=== PATIENT | male | born 1960 | race African-American/Black ===

== ENCOUNTER 2016-07-30 12:00 | Emergency (ER) | payer SELFPAY ==
[~2016-07-30] VITALS: Ht 180.3 cm; Wt 68.0 kg
[2016-07-30] MEDS ORDERED: Bactrim DS (160mg/800mg) tab ORAL ONE (12:15)
[2016-07-30] MEDS ORDERED: Cephalexin 500mg cap ORAL ONE (12:15)
[2016-07-30] MEDS ORDERED: CEPHALEXIN500 MG ORAL (12:36)
[2016-07-30] MEDS ORDERED: BACTRIM DS TAB1 EAC1 ORAL (12:36)
[2016-07-30] MEDS ORDERED: IBUPROFEN600 MG ORAL (12:36)
[2016-07-30 13:01] VITALS: BP 141/67
[2016-07-30 13:02] VITALS: BP 146/65
--- NOTE | 2016-07-30 21:25 | Emergency Room Report ---
History of Present Illness General Chief Complaint: Medical Clearance Source: Patient Present Illness HPI The patient is a 56-year-old male brought in by ambulance in custody complaining of left leg pain. The patient states that pain did not begin today. He noticed an insect bite 5 days prior which has grown in size and redness. Pain is described as a 10 out of 10 dull ache and does not radiate from the left lower leg. He denies any other symptoms including fever, chills, numbness or tingling, N, V, abd pain, CP, SOB Allergies: Coded Allergies: No Known Allergies (Unverified , 07/30/16) Patient History Past Medical History: see triage record Pertinent Family History: none Reviewed Nursing Documentation: PMH: Agreed, PSxH: Agreed Nursing Documentation-PMH Past Medical History: No History, Except For Hx Asthma: Yes Review of Systems All Other Systems: negative except mentioned in HPI Physical Exam Vital Signs Date Time Temp Pulse Resp B/P Pulse Ox O2 Delivery O2 Flow Rate FiO2 07/30/16 11:54 98.6 75 20 146/65 98 Room Air Sp02 EP Interpretation: reviewed, normal General Appearance: no apparent distress, alert, GCS 15, non-toxic Head: normocephalic, atraumatic Eyes: bilateral eye PERRL, bilateral eye normal inspection ENT: hearing grossly normal, normal pharynx, no angioedema, normal voice Musculoskeletal: normal range of motion, tender - TTP over the infected region of L lower medial leg Neurologic: alert, oriented x3, responsive, motor strength/tone normal, sensory intact, normal gait, speech normal Psychiatric: judgement/insight normal, memory normal, mood/affect normal, no suicidal/homicidal ideation Skin: other - erythema of the L medial lower leg. TTP. Hot to the touch. No fluctuance. There is a central necrosis noted. Lymphatic: no adenopathy Medical Decision Making PA Attestation Dr. Decker is my supervising physician. Patient management was discussed with my supervising physician Diagnostic Impression: Primary Impression: Cellulitis Qualified Codes: L03.116 - Cellulitis of left lower limb ER Course The patient is a 56-year-old male brought in by ambulance in custody complaining of left leg pain. Ddx considered include but not limited to cellulitis, abscess, DVT, sprain/ strain, among others PE: vitals WNL. NAD erythema of the L medial lower leg. TTP. Hot to the touch. No fluctuance. There is a central necrosis noted. No discharge. No mid calf tenderness or palpable cord. Normal gait. The area is cleaned with NS and betadine and sterile dressing applied with xeroform. The pt is given pain medication and antibiotics and will be ID'ed in custody. Pt is medically cleared. Last Vital Signs Date Time Temp Pulse Resp B/P Pulse Ox O2 Delivery O2 Flow Rate FiO2 07/30/16 13:02 98.6 20 146/65 98 Room Air 07/30/16 13:01 79 Status: improved Disposition: HOME, SELF-CARE Condition: Improved Scripts Trimethoprim/Sulfamethoxazole 160/800* (BACTRIM DS TABLET*) 1 Each Tablet 1 TAB ORAL TWICE A DAY, #14 TAB Prov: KORIN RESTREPO.A. 07/30/16 Cephalexin* (KEFLEX*) 500 Mg Capsule 500 MG ORAL EVERY 6 HOURS, #28 CAP Prov: KORIN RESTREPO P.A. 07/30/16 Ibuprofen* (MOTRIN*) 600 Mg Tablet 600 MG ORAL Q8H Y for For Pain, #30 TAB 0 Refills Prov: KORIN RESTREPO P.A. 07/30/16 Referrals: NOT CHOSEN IPA/MD,REFERRING (PCP) Departure Forms: Half-Way Clearance Patient Instructions: Cellulitis Additional Instructions: I discussed my findings with the patient. All questions and concerns have been answered. Treatment and medication compliance have been addressed. Seek medical attention immediately if you notice increased pain, swelling, fever, chills, or for any other reason. Patient verbalized understanding of discharge instructions. KORIN RESTREPO July 30, 2016 21:25
== END 2016-07-30 13:04 ==
LOC: EDBD 12:00 → EMR 12:45
DX: L03.116 Cellulitis of left lower limb (principal); M79.605 Pain in left leg; J45.909 Unspecified asthma, uncomplicated; Z02.89 Encounter for other administrative examinations
CPT/HCPCS: 99284

== ENCOUNTER 2018-03-15 13:23 | Inpatient (IN) | payer SELFPAY ==
[~2018-03-15] VITALS: Ht 175.3 cm; Wt 68.0 kg
[~2018-03-15 13:23] MED LIST: BACTRIM DS TAB1 EAC1 ORAL; CEPHALEXIN500 MG ORAL; IBUPROFEN600 MG ORAL
[2018-03-15 13:30] VITALS: BP 164/83
--- NOTE | 2018-03-15 13:30 | NUR ---
ED Nurse Note: noted swelling on left side facial area and right hand swelling, PA aware.
--- NOTE | 2018-03-15 13:30 | NUR ---
ED Nurse Note: PT WALKED IN TO ER TODAY FROM HOME. AOX4. PT C/O RIGHT HAND PAIN, 10/10 X YESTERDAY AFTER SUSPECTED INSECT BITE. HAND APPEARS SWOLLEN BUT FULL ROM OF DIGITS AND WRIST, CIRCULATION AND SENSATION INTACT, CAP REFILL <3 SECONDS, MUSCLE STRENGTH 5/5.
--- NOTE | 2018-03-15 13:35 | NUR ---
ED Nurse Note: PT PRESENTS WITH BILATERAL 2+ PITTING LEG EDEMA.
[2018-03-15] MEDS ORDERED: Ampicillin/Sulbactam Sod 3 GM in NS 110 ML IVPB ONE (14:15)
[2018-03-15 14:59] LABS: BASOPHILS % (AUTO) 1.1 % (0.0-2.0); EOSINOPHILS % (AUTO) 1.8 % (0.0-3.0); HEMATOCRIT 40.5 % (42.0-52.0); HEMOGLOBIN 13.6 G/DL (14.2-18.0); LYMPHOCYTES % (AUTO) 21.9 % (20.0-45.0); MEAN CORPUSCULAR VOLUME 94 FL (80-99); MONOCYTES % (AUTO) 15.3 % (1.0-10.0); PLATELET COUNT 299 K/UL (150-450); RED BLOOD COUNT 4.33 M/UL (4.70-6.10); RED CELL DISTRIBUTION WIDTH 11.3 % (11.6-14.8); WHITE BLOOD COUNT 6.7 K/UL (4.8-10.8)
[2018-03-15 15:03] LABS: ANION GAP 7 mmol/L (5-15); BLOOD UREA NITROGEN 15 mg/dL (7-18); CALCIUM 9.2 MG/DL (8.5-10.1); CARBON DIOXIDE 29 MMOL/L (21-32); CHLORIDE 104 MMOL/L (98-107); CREATININE 1.1 MG/DL (0.55-1.30); POTASSIUM 4.1 MMOL/L (3.5-5.1); SODIUM 140 MMOL/L (136-145)
[2018-03-15 15:09] LABS: ALANINE AMINOTRANSFERASE 25 U/L (12-78); ALBUMIN 3.3 G/DL (3.4-5.0); ALBUMIN/GLOBULIN RATIO 0.9 (1.0-2.7); ALKALINE PHOSPHATASE 100 U/L (46-116); ASPARTATE AMINO TRANSFERASE 20 U/L (15-37); BILIRUBIN,TOTAL 0.4 MG/DL (0.2-1.0); CREATINE KINASE 239 U/L (26-308)
[2018-03-15] MEDS ORDERED: Tylenol #3 tab (300mg/30mg) ORAL ONE (15:15)
--- NOTE | 2018-03-15 15:15 | Emergency Room Report ---
History of Present Illness General Chief Complaint: Animal Bite Source: Patient Present Illness HPI 57-year-old male presents to the emergency department complaining of pain, swelling, warmth and erythema to the right and left hand since yesterday. Patient reports that his most significant pain is in the right middle finger however he also has pain in the left index finger as well. Patient believes he was bit by a spider. Patient denies fevers or chills. He denies past medical history. Patient denies taking medications at this time. He denies Trauma or fall. pt. reports inability to make a fist with his right hand, and he cannot straighten his left index finger. Reports tetanus is UTD. Allergies: Coded Allergies: No Known Allergies (Unverified , 07/30/16) Patient History Past Medical History: see triage record Past Surgical History: none Pertinent Family History: none Immunizations: UTD Reviewed Nursing Documentation: PMH: Agreed; PSxH: Agreed Nursing Documentation-PMH Past Medical History: No History, Except For Hx Hypertension: Yes Hx Asthma: Yes Review of Systems All Other Systems: negative except mentioned in HPI Physical Exam Vital Signs Date Time Temp Pulse Resp B/P (MAP) Pulse Ox O2 Delivery O2 Flow Rate FiO2 03/15/18 13:27 97.9 80 20 176/89 99 Room Air Sp02 EP Interpretation: reviewed, normal General Appearance: alert, GCS 15, non-toxic, mild distress Head: normocephalic, atraumatic Eyes: bilateral eye normal inspection, bilateral eye PERRL ENT: hearing grossly normal, normal voice Neck: full range of motion Respiratory: lungs clear, normal breath sounds, speaking full sentences Cardiovascular #1: regular rate, rhythm, normal capillary refill Cardiovascular #2: 2+ radial (R), 2+ radial (L) Gastrointestinal: non tender, soft Musculoskeletal: back normal, gait/station normal, normal range of motion, non- tender, swelling - RMF and left index finger. Neurologic: alert, oriented x3, responsive, motor strength/tone normal, sensory intact, speech normal, grossly normal Psychiatric: judgement/insight normal Skin: no rash, warm/dry, well hydrated, other - erythema swelling and warmth to the entire RMF, also noted on the Left index finger as well to a lesser degree. erythema and warmth to fingers 1-5 of the right hand. no streatking noted. Medical Decision Making PA Attestation Dr. Frances is my supervising Physician whom patient management has been discussed with. Diagnostic Impression: Primary Impression: Cellulitis Qualified Codes: L03.011 - Cellulitis of right finger Additional Impression: Tenosynovitis of finger ER Course 57-year-old male presents to the emergency department complaining of pain, swelling, warmth and erythema to the right and left hand since yesterday. Patient reports that his most significant pain is in the right middle finger however he also has pain in the left index finger as well. Patient believes he was bit by a spider. Patient denies fevers or chills. He denies past medical history. Patient denies taking medications at this time. He denies Trauma or fall. pt. reports inability to make a fist with his right hand, and he cannot straighten his left index finger. Reports tetanus is UTD. Ddx considered but are not limited to cellulitis, paronychia, eponychia, ingrown nail, fracture, d/L, gout, tenosynovitis just to name a few. Vital signs: are WNL, pt. is afebrile H&PE are most consistent with significant cellulitis of the RMF, and Left index finger. ORDERS: - CBC, CMP, Lactic acid= Mild anemia otherwise all unremarkable/WNL -Blood Cultures: Pending -X-rays bilateral Hands: negative for fx's or D/L's ED INTERVENTIONS: -IV abx. - Vancomycin -4mg Morphine x 2 DISPOSITION: at this time pt. will be admitted to Dr. Rivero for Cellulitis and Tenosynovitis of the right hand. Dr. Rivero agreed to admit the pt. and to continue pt. care management. Labs Test 03/15/18 14:46 White Blood Count 6.7 K/UL (4.8-10.8) Red Blood Count 4.33 M/UL (4.70-6.10) Hemoglobin 13.6 G/DL (14.2-18.0) Hematocrit 40.5 % (42.0-52.0) Mean Corpuscular Volume 94 FL (80-99) Mean Corpuscular Hemoglobin 31.4 PG (27.0-31.0) Mean Corpuscular Hemoglobin Concent 33.5 G/DL (32.0-36.0) Red Cell Distribution Width 11.3 % (11.6-14.8) Platelet Count 299 K/UL (150-450) Mean Platelet Volume 5.6 FL (6.5-10.1) Neutrophils (%) (Auto) 60.0 % (45.0-75.0) Lymphocytes (%) (Auto) 21.9 % (20.0-45.0) Monocytes (%) (Auto) 15.3 % (1.0-10.0) Eosinophils (%) (Auto) 1.8 % (0.0-3.0) Basophils (%) (Auto) 1.1 % (0.0-2.0) Sodium Level 140 MMOL/L (136-145) Potassium Level 4.1 MMOL/L (3.5-5.1) Chloride Level 104 MMOL/L (98-107) Carbon Dioxide Level 29 MMOL/L (21-32) Anion Gap 7 mmol/L (5-15) Blood Urea Nitrogen 15 mg/dL (7-18) Creatinine 1.1 MG/DL (0.55-1.30) Estimat Glomerular Filtration Rate > 60 mL/min (>60) Glucose Level 86 MG/DL (74-106) Lactic Acid Level 0.80 mmol/L (0.4-2.0) Calcium Level 9.2 MG/DL (8.5-10.1) Total Bilirubin 0.4 MG/DL (0.2-1.0) Aspartate Amino Transf (AST/SGOT) 20 U/L (15-37) Alanine Aminotransferase (ALT/SGPT) 25 U/L (12-78) Alkaline Phosphatase 100 U/L (46-116) Total Creatine Kinase 239 U/L (26-308) Troponin I 0.000 ng/mL (0.000-0.056) Total Protein 7.1 G/DL (6.4-8.2) Albumin 3.3 G/DL (3.4-5.0) Globulin 3.8 g/dL Albumin/Globulin Ratio 0.9 (1.0-2.7) Other X-Ray Diagnostic Results Other X-Ray Diagnostic Results #1: X-Ray ordered: Right Hand # of Views/Limited Vs Complete: 3 View Indication: Pain EP Interpretation: Yes PA Xray: Interpretation reviewed, by supervising MD, and agrees with findings. Interpretation: no dislocation, no soft tissue swelling, no fractures Impression: No acute disease Electronically Signed by: Sadaf Crawford PA-C Other X-Ray Diagnostic Results #2: X-Ray ordered: Left Hand # of Views/Limited Vs Complete: 3 View Indication: Pain EP Interpretation: Yes PA Xray: Interpretation reviewed, by supervising MD, and agrees with findings. Interpretation: no dislocation, no soft tissue swelling, no fractures Impression: No acute disease Electronically Signed by: Sadaf Crawford PA-C Last Vital Signs Date Time Temp Pulse Resp B/P (MAP) Pulse Ox O2 Delivery O2 Flow Rate FiO2 03/15/18 13:30 98.2 76 18 164/83 98 Room Air Disposition: ADMITTED INPATIENT Condition: Serious Sadaf Crawford Mar 15, 2018 15:15
[2018-03-15] MEDS ORDERED: TYLENOL325 M1 PO (15:25)
[2018-03-15 15:30] VITALS: BP 167/89
[2018-03-15] MEDS ORDERED: Vancomycin 1.5gm/D5W 250ml 250 ML IVPB ONE (16:30)
--- NOTE | 2018-03-15 16:34 | NUR ---
ED Nurse Note: pt kelvino not in stock, pharmacy notified.
--- NOTE | 2018-03-15 16:55 | Diagnostic Imaging Report ---
Indication: left hand pain. Findings: 3 views of the left hand were obtained. Normal alignment is demonstrated. No acute fractures, erosions, or periosteal reaction are seen. Soft tissues are unremarkable. Impression: No acute findings.
--- NOTE | 2018-03-15 16:56 | Diagnostic Imaging Report ---
Indication: Right hand pain Findings: 3 views of the right hand were obtained. Normal bony mineralization and alignment are demonstrated. No acute fractures, erosions, or periosteal reaction are seen. Soft tissues swelling is present. Impression: No acute findings.
--- NOTE | 2018-03-15 17:24 | NUR ---
ED Nurse Note: PHARMACY DELIVERED VANCO. WILL ADMINISTER SHORTLY.
[2018-03-15 17:30] VITALS: BP 166/89
[2018-03-15] MEDS ORDERED: Morphine Sulfate 4mg/ml Inj (IV/IM USE ONLY) IVP ONE ×2 (18:00→20:15)
--- NOTE | 2018-03-15 18:12 | NUR ---
ED Nurse Note: pt refused to swab for MRSA/VRE, pt became combative and used inappropriate language, MD notified.
--- NOTE | 2018-03-15 18:13 | NUR ---
ED Nurse Note: pt provided with sandwich and juice, unable to complete belonging list, pt refused.
--- NOTE | 2018-03-15 18:30 | NUR ---
ED Nurse Note: CALLED FOR REPORT. LEFT ON HOLD FOR >5MINS.
--- NOTE | 2018-03-15 18:39 | NUR ---
ED Nurse Note: CALLED [facility] FOR PT TRANSFER. NO ANSWER.
--- NOTE | 2018-03-15 18:46 | NUR ---
ED Nurse Note: CALLED [facility] FOR PT TRANSFER. NO ANSWER.
--- NOTE | 2018-03-15 18:56 | NUR ---
NURSE NOTES: Received report from Ed from ER. Awaiting for the patient.
--- NOTE | 2018-03-15 18:56 | NUR ---
ED Nurse Note: [facility] CALLED FOR PT TRANSFER. REPORT GIVEN TO DUKE LYMAN. PT BEING HELD IN ED PER DR. FISHER UNTIL HAND SURGEON IS CONTACTED. WILL CONTINUE TO MONITOR.
--- NOTE | 2018-03-15 19:00 | NUR ---
HAND-OFF: Report given to Olivia. Still waiting for the patient.
--- NOTE | 2018-03-15 19:25 | NUR ---
ED Nurse Note: ERMD notified regarding pt's condition, PT bp = 212/98
[2018-03-15 19:30] VITALS: BP 212/78
--- NOTE | 2018-03-15 20:00 | NUR ---
ED Nurse Note: hydralazine was held, ERMD notified,regarding recheck vs after pain med administration.
--- NOTE | 2018-03-15 20:04 | NUR ---
ED Nurse Note: Pt c/o 12/15 pain, pa notified.
[2018-03-15] MEDS ORDERED: Morphine Sulfate 4mg/ml Inj (IV/IM USE ONLY) ONE (20:18)
--- NOTE | 2018-03-15 20:31 | NUR ---
ED Nurse Note: pt tranfered to monitor bed from ob bed, pt is complaining of 10/10 pain on right hand, noted to have swelling right hand, morphine given. pt vs recorded. will continue to monitor.
[2018-03-15] MEDS ORDERED: Isovue-300 100ml vial INJ PRN (21:30)
[2018-03-15] MEDS ORDERED: cloNIDine 0.2mg Tab ONE (21:55)
[2018-03-15] MEDS ORDERED: HYDROmorphone 1mg/ml Carpuject ONE (21:55)
[2018-03-15] MEDS ORDERED: HYDROmorphone 1mg/ml Carpuject IVP ONE (22:00)
[2018-03-15] MEDS ORDERED: cloNIDine 0.2mg Tab ORAL ONE (22:00)
--- NOTE | 2018-03-15 22:21 | NUR ---
ED Nurse Note: pt was admitted to the hospital. report given to erich tripp. pt tranfered with stable vital signs.
[2018-03-15 22:22] VITALS: BP 174/91
[2018-03-15 23:43] VITALS: BP 168/82
--- NOTE | 2018-03-16 00:36 | NUR ---
NURSE NOTES: Patient is alert and awake. Nurse woke him up for moving pt to hospital bed. Patient asked nurse to give him pain medication. Nurse informed pt will call the Primary to get order. Patient was yelling at nurse and toe pounder. Verbally abused and cursed. Patient refused to take VS and checking belongings. Informed CN and nursing lead refinery supervisor. Left message MD for admit order and pt's condition. Addendum: 03/16/18 at 0056 by BELEM DELEON RN Patient resting in the bed quietly now. Will continue to monitor.
--- NOTE | 2018-03-16 01:07 | NUR ---
NURSE NOTES: Refused nurse to do assessment.
--- NOTE | 2018-03-16 04:44 | NUR ---
NURSE NOTES: @0400, Patient slammed door loudly. Reported to security, CN and Funnel Coater. Patient was yelling and c/o pain. verbally abused. stated "Fxxk and leave me alone" Nurse informed pt that already contacted MD. waiting for order. Still yelling and asked nurse leave him alone. Now patient stayed bed and sleeping. Will continue to monitor. Addendum: 03/16/18 at 0452 by BELEM DELEON RN Nurse left door open.
[2018-03-16] MEDS ORDERED: Morphine Sulfate 4mg/ml Inj (IV/IM USE ONLY) IVP PRN (05:30)
--- NOTE | 2018-03-16 05:48 | NUR ---
NURSE NOTES: received admit order from
--- NOTE | 2018-03-16 07:58 | NUR ---
HAND-OFF: Report given to Deanna WALL.
[2018-03-16 08:00] VITALS: BP 176/86
--- NOTE | 2018-03-16 08:00 | NUR ---
NURSE NOTES: Received report from Marjorie WALL. On rounds, patient is asleep, no s/s acute distress noted. LAC IV asymptomatic. No IVF running, per report patient refuses IVF. NPO maintained. Per report, patient refused VS overnight. Side rails upx2, bed low and locked, call light in reach. Will continue to monitor.
--- NOTE | 2018-03-16 08:59 | Consultation ---
History of Present Illness General Date patient seen: Mar 16, 2018 Time patient seen: 07:45 - am Chief Complaint: Hand cellulitis Referring physician: Dr. Sherman Reason for Consultation: Pain Management Present Illness HPI 57-year-old male presents to the emergency department complaining of pain, swelling, warmth and erythema to the right and left hand since yesterday. Patient reports that his most significant pain is in the right middle finger however he also has pain in the left index finger as well. Patient believes he was bit by a spider. Patient denies fevers or chills. He denies past medical history. Patient denies taking medications at this time. He denies Trauma or fall. pt. reports inability to make a fist with his right hand, and he cannot straighten his left index finger. Allergies: Coded Allergies: No Known Allergies (Unverified , 07/30/16) Medication History Scheduled Cephalexin* (Keflex*), 500 MG ORAL EVERY 6 HOURS Trimethoprim/Sulfamethoxazole 160/800* (Bactrim Ds Tablet*), 1 TAB ORAL TWICE A DAY Scheduled PRN Ibuprofen* (Motrin*), 600 MG ORAL Q8H PRN for For Pain Miscellaneous Medications Acetaminophen (Tylenol), 325 MG PO, (Reported) Patient History Healthcare decision maker Resuscitation status Full Code Advanced Directive on File Patient History Narrative Hx Hypertension: Yes Hx Asthma: Yes Past Medical/Surgical History Past Medical/Surgical History: (1) Cellulitis Review of Systems Constitutional: Reports: no symptoms Eye: Reports: no symptoms ENT: Reports: no symptoms Respiratory: Reports: no symptoms Cardiovascular: Reports: no symptoms Gastrointestinal: Reports: no symptoms Genitourinary: Reports: no symptoms Musculoskeletal: Reports: other - Right hand pain Skin: Reports: no symptoms Psychiatric: Reports: no symptoms Neurological: Reports: no symptoms Endocrine: Reports: no symptoms Hematologic/Lymphatic: Reports: no symptoms Physical Exam Last 24 Hour Vital Signs Date Time Temp Pulse Resp B/P (MAP) Pulse Ox O2 Delivery O2 Flow Rate FiO2 03/16/18 01:03 Room Air 03/15/18 23:43 98.0 93 14 168/82 97 Room Air 93 93 03/15/18 23:15 178/87 03/15/18 22:22 98.0 93 18 174/91 97 Room Air 03/15/18 22:22 98.0 93 14 174/91 97 Room Air 93 1/8/19 21:56 186/90 03/15/18 20:46 193/93 03/15/18 20:02 76 18 Room Air 03/15/18 19:30 97.7 76 18 212/78 98 Room Air 03/15/18 17:30 97.8 78 18 166/89 98 Room Air 03/15/18 15:30 97.8 76 18 167/89 98 Room Air 03/15/18 13:30 98.2 76 18 164/83 98 Room Air 03/15/18 13:27 97.9 80 20 176/89 99 Room Air Intake and Output 03/15/18 03/16/18 18:59 06:59 Intake Total 110 ml Balance 110 ml Intake IV Total 110 ml # Voids 1 Laboratory Tests Test 03/15/18 14:46 White Blood Count 6.7 K/UL (4.8-10.8) Red Blood Count 4.33 M/UL (4.70-6.10) L Hemoglobin 13.6 G/DL (14.2-18.0) L Hematocrit 40.5 % (42.0-52.0) L Mean Corpuscular Volume 94 FL (80-99) Mean Corpuscular Hemoglobin 31.4 PG (27.0-31.0) H Mean Corpuscular Hemoglobin Concent 33.5 G/DL (32.0-36.0) Red Cell Distribution Width 11.3 % (11.6-14.8) L Platelet Count 299 K/UL (150-450) Mean Platelet Volume 5.6 FL (6.5-10.1) L Neutrophils (%) (Auto) 60.0 % (45.0-75.0) Lymphocytes (%) (Auto) 21.9 % (20.0-45.0) Monocytes (%) (Auto) 15.3 % (1.0-10.0) H Eosinophils (%) (Auto) 1.8 % (0.0-3.0) Basophils (%) (Auto) 1.1 % (0.0-2.0) Sodium Level 140 MMOL/L (136-145) Potassium Level 4.1 MMOL/L (3.5-5.1) Chloride Level 104 MMOL/L (98-107) Carbon Dioxide Level 29 MMOL/L (21-32) Anion Gap 7 mmol/L (5-15) Blood Urea Nitrogen 15 mg/dL (7-18) Creatinine 1.1 MG/DL (0.55-1.30) Estimat Glomerular Filtration Rate > 60 mL/min (>60) Glucose Level 86 MG/DL (74-106) Lactic Acid Level 0.80 mmol/L (0.4-2.0) Calcium Level 9.2 MG/DL (8.5-10.1) Total Bilirubin 0.4 MG/DL (0.2-1.0) Aspartate Amino Transf (AST/SGOT) 20 U/L (15-37) Alanine Aminotransferase (ALT/SGPT) 25 U/L (12-78) Alkaline Phosphatase 100 U/L (46-116) Total Creatine Kinase 239 U/L (26-308) Troponin I 0.000 ng/mL (0.000-0.056) Total Protein 7.1 G/DL (6.4-8.2) Albumin 3.3 G/DL (3.4-5.0) L Globulin 3.8 g/dL Albumin/Globulin Ratio 0.9 (1.0-2.7) L Height (Feet): 5 Height (Inches): 9.00 Weight (Pounds): 150 Medications Current Medications Medications (Trade) Dose Ordered Sig/Monica Route PRN Reason Start Time Stop Time Status Last Admin Dose Admin Acetaminophen (Tylenol) 650 mg Q4H PRN ORAL Mild Pain/Temp > 100.5 03/16/18 05:30 04/15/18 05:29 Clonidine HCl (Catapres Tab) 0.1 mg Q6H PRN ORAL For High Blood Pressure 03/16/18 05:30 04/15/18 05:29 Iopamidol (Isovue-300 100ml) 100 ml NOW PRN INJ Radiology Procedure 03/15/18 21:30 03/17/18 21:20 Morphine Sulfate (Morphine Sulfate) 4 mg Q4H PRN IVP For Pain 03/16/18 05:30 03/23/18 05:29 Sodium Chloride 1,000 ml @ 75 mls/hr [id number] IV 03/16/18 06:00 04/15/18 05:59 Objective Narrative General Appearance: alert, GCS 15, non-toxic, mild distress Head: normocephalic, atraumatic Eyes: bilateral eye normal inspection, bilateral eye PERRL ENT: hearing grossly normal, normal voice Neck: full range of motion Respiratory: lungs clear, normal breath sounds, speaking full sentences Cardiovascular #1: regular rate, rhythm, normal capillary refill Cardiovascular #2: 2+ radial (R), 2+ radial (L) Gastrointestinal: non tender, soft Musculoskeletal: back normal, gait/station normal, normal range of motion, non- tender, swelling - RMF and left index finger. Neurologic: alert, oriented x3, responsive, motor strength/tone normal, sensory intact, speech normal, grossly normal Psychiatric: judgement/insight normal Skin: no rash, warm/dry, well hydrated, other - erythema swelling and warmth to the entire RMF, also noted on the Left index finger as well to a lesser degree. erythema and warmth to fingers 1-5 of the right hand. no streaking noted. Assessment/Plan Assessment/Plan (1) Right hand pain (2) Right hand Cellulitis Patient to be continued on Morphine 4mg IV Q4H PRN severe pain. D/w Dr. Amin and he concurred. Thank you for consult. Ron Flynn Mar 16, 2018 08:59
[2018-03-16 09:13] VITALS: BP 176/86
--- NOTE | 2018-03-16 10:31 | NUR ---
NURSE NOTES: Patient reports he is going to leave AMA. Acting irate with staff, threw call light at MD when MD tried to explain why patient needs to remain NPO. Security is at the bedside. MD and RN both explained the risks of leaving AMA to the patient, but the patient states he does not want to stay and does not want to have surgery despite these risks. Addendum: 03/16/18 at 1056 by Deanna Palma RN Add: MD is aware of patient's elevated blood pressure earlier in morning, patient refused to let RN reassess. Addendum: 03/16/18 at 1108 by Deanna Palma RN Edit to previous addendum: Patient refused to let RN reassess blood pressure before leaving AMA.
--- NOTE | 2018-03-16 10:36 | NUR ---
AMA: SEE AMA FORM (PATIENT REFUSED TO SIGN, AWARE. WITNESSED BY CHARGE NURSE MARIAN WALL). Patient left AMA at 1033, escorted off unit by security, patient ambulatory, IV removed intact. Dr. Ramírez and Dr. Sherman both explained the risks of leaving the hospital AMA to the patient, including worsening of condition, loss of limb, and . The patient stated that he understands the risks but still insisted on leaving. Offered additional education on risks of leaving, patient reported "I don't care. I'm leaving". Told patient multiple times that he must sign AMA form, patient refused to sign form multiple times. Dr. Sherman is aware and refusal witnessed by recharger. Patient refused to sign for belongings. Nursing supervisor shuttle fitting aware.
--- NOTE | 2018-03-17 04:45 | History and Physical Report ---
DATE OF ADMISSION: 03/15/2018 HISTORY OF PRESENT ILLNESS: The patient initially was admitted for right finger cellulitis. ER doctor was able to talk to Dr. Fang Ramírez and he was kind enough to see the patient and do the surgery for the cellulitis of the right finger. The patient has a history of drug abuse and history of smoking. The patient also currently has a history of psychiatric disorder. The patient was very agitated, combative from the beginning of admission for different reasons. Also, I was present in the room when the surgeon, Dr. Ramírez came to do the surgery. He all of a sudden got very physically and verbally abusive, got out of the bed and stated that "I am going to leave right now." The patient refused to answer any questions and did not want to even sign the AMA paper. It is unclear why the patient wanted to be discharged against medical advice. We explained to him that he may lose his finger. He knew the consequences very well. However, he was wanting to leave. So, the surgeon obviously had to cancel the surgery. PAST MEDICAL HISTORY: The patient does not answer the questions. So, we cannot find out what his personal history is. PAST SURGICAL HISTORY: The patient does not answer the questions. So, we cannot find out what his personal history is. ALLERGIES: We do not know whether the patient has allergies or not. MEDICATIONS: We do not know whether the patient takes any medications or not. REVIEW OF SYSTEMS: Does not answer questions, was agitated, verbally abusive to staff as well as to the doctors including myself. PHYSICAL EXAMINATION: VITAL SIGNS: Temperature 97.2 degrees, pulse 70, and blood pressure 130/78. EXTREMITIES: The patient did not allow us to examine him, but did have a swollen right index finger throughout and was tender to touch when the surgeon was examining it. ASSESSMENT AND PLAN: Right finger cellulitis. The patient does not want to wait long enough to do the surgery. He wants to leave against medical advice despite us stating that he might lose his finger. We told him that he will lose his finger and we made it very clear to him and he still chose to leave. Frankie Sherman M.D. DR: Germania JOB#: [id number] CC:
--- NOTE | 2018-03-17 09:27 | Discharge Summary ---
Discharge Summary Discharge Summary _ DATE OF ADMISSION: 03/15/2018 DATE OF DISCHARGE: 03/16/2018 ADMITTING MD: Dr. Frankie Solomon CONSULTANTS: Dr. Ana Ramírez BRIEF HOSPITAL COURSE: Patient is a 57-year-old male, who presented to the emergency department complaining of pain, swelling and warmth with erythema to the right hand and left hand. Patient reported that most significant pain is in the right middle finger, however he also has pain in the left index finger. He believed he was bitten by a spider. Patient denied any fever or chills. He denied past medical history. He denied taking any medications. He denied any trauma or fall. He has history of drug abuse and history of smoking. He also has history of psychiatric disorder. He reported inability to make a fist with the right hand. He cannot straighten his left index finger. He reported that tetanus vaccine was up-to-date. On evaluation at the ED, blood pressure was elevated to 176/89. Blood work did not show any leukocytosis. Lactic acid 0.80. X-rays of bilateral hand was negative for acute fractures, erosions or periosteal reactions there was soft tissue swelling present on the right hand. CT of the hand was ordered but patient refused. He was given Unasyn and IV vancomycin. He was given IV hydralazine for blood pressure control. He was then admitted for evaluation of hand cellulitis. He was seen by pain management. He was given the morphine for pain. Surgeon was consulted. Patient was seen, and was planned to undergo right middle finger exploration and drainage at bedside, however, patient became physically and verbally abusive, got out of bed and stated "I am going to leave right now. "Patient was very agitated and combative since admission. Full treatment was not carried out as patient left against medical advise. FINAL DIAGNOSES: Right middle finger cellulitis Noncompliance DISPOSITION: Patient left against medical advise. I have been assigned to dictate discharge summary on this account, and I was not involved in the patient's management. Yvrose Ramirez NP Mar 17, 2018 09:27
== END 2018-03-16 10:33 | disposition left against medical advice (07) | DRG 603 ==
LOC: EDBEDREQ 14:43 → EMR 15:50 → 4E 15:55 → EDBEDREQ 17:38 → 3E 22:10
DX: L03.011 Cellulitis of right finger (principal); Z91.19 Patient's noncompliance with other medical treatment and regimen; M79.641 Pain in right hand
CPT/HCPCS: 36415; 80053; 82550; 83605; 84484; 85025; 87040; 96365; 96367; 96375; 96376; 99285